=== PATIENT | female | born 1995 | race Caucasian/White ===

== ENCOUNTER 2016-11-28 19:33 | Emergency (ER) | payer SELFPAY | END 2016-11-28 19:40 | disposition left against medical advice (07) | LOC: ED 19:33 | DX: O26.892 Other specified pregnancy related conditions, second trimester (principal); R10.9 Unspecified abdominal pain; Z3A.18 18 weeks gestation of pregnancy; Z53.21 Procedure and treatment not carried out due to patient leaving prior to being seen by health care provider ==